=== PATIENT | male | born 1940 | race Caucasian/White ===

== ENCOUNTER 2020-12-24 09:59 | Emergency (ER) | payer OTHER ==
[2020-12-24 10:29] LABS: Absolute Lymphocytes (CBC) 1.4 K/uL (0.7-4.9); Basophils % 0.4 % (0-1.3); Hematocrit 41.4 % (39.6-49.0); Lymphocytes % 24.2 % (15.3-44.8); MPV 7.6 fL (7.6-11.3); RBC Red Blood Cell Count 4.42 M/uL (4.33-5.43)
[2020-12-24 10:35] LABS: Protime INR 1.03
[2020-12-24 10:54] LABS: ALT/SGPT 25 U/L (12-78); AST/SGOT 23 U/L (15-37); Albumin 3.6 g/dL (3.4-5.0); Alkaline Phosphatase 80 U/L (45-117); BUN Blood Urea Nitrogen 24 mg/dL (7-18); Bicarbonate 29 mmol/L (21-32); Bilirubin Direct 0.1 mg/dL (0-0.2); Bilirubin Total 0.5 mg/dL (0.2-1.0); Glucose Level 109 mg/dL (74-106); Magnesium 2.2 mg/dL (1.8-2.4); NT PRO-BNP 387 pg/mL (<450); Potassium 4.5 mmol/L (3.5-5.1); Protein, Total 7.3 g/dL (6.4-8.2); Sodium Level 141 mmol/L (136-145); Troponin (Emerg Dept Use Only) < 0.02 ng/mL (0.0-0.045)
--- NOTE | 2020-12-24 10:57 | EKG ---
Test Date: 2020-12-24 Test Time: 10:10:56 Emergency Dispatcher: FLAVIA MEASUREMENT RESULTS: Intervals: Rate: 45 IL: 186 QRSD: 96 QT: 474 QTc: 410 [place]: P: 78 IL: 186 QRS: 67 T: 74 INTERPRETIVE STATEMENTS: Sinus bradycardia Nonspecific ST abnormality Abnormal ECG No previous ECG available for comparison Electronically Signed On 12-24-20 10:56:42 CDT by Monster Lloyd
--- NOTE | 2020-12-24 13:33 | ER ---
Nurse's Notes [facility] Name: Prem Staples Age: 80 yrs Sex: Male : 1940 Arrival Date: 12/24/2020 Time: 10:01 Bed 2 Private MD: Bairon Real E Diagnosis: Dizziness and giddiness;Bradycardia, unspecified-Chronically in the 40s but today as low as 37 Presentation: 12/24 10:15 Chief complaint: Patient states: Dizziness that began this morning. BP at home was ss 18/58 with a HR of 37. Baseline HR is 42 according to patient. PT reports that he feels better at this time. Coronavirus screen: Client denies travel out of the [place] in the last 14 days. Ebola Screen: Patient denies exposure to infectious person. Patient denies travel to an Ebola-affected area in the 21 days before illness onset. Initial Sepsis Screen: Does the patient meet any 2 criteria? No. Patient's initial sepsis screen is negative. Does the patient have a suspected source of infection? No. Patient's initial sepsis screen is negative. Risk Assessment: Do you want to hurt yourself or someone else? Patient reports no desire to harm self or others. Onset of symptoms was December 24, 2020. 10:15 Method Of Arrival: Ambulatory ss 10:15 Acuity: ILYA 3 ss Historical: - Allergies: 10:16 PENICILLINS; ss - Home Meds: 10:16 levothyroxine oral [Active]; ss - PMHx: 10:16 Hypothyroidism; ss - PSHx: 10:16 Bilateral knee replacement; Shoulder repair; R foot; Appendectomy; Tonsillectomy; ss - Immunization history:: Adult Immunizations up to date, Client reports receiving the 2nd dose of the Covid vaccine. - Social history:: Smoking status: Patient denies any tobacco usage or history of. Screenin:06 Abuse screen: Denies threats or abuse. Denies injuries from another. Nutritional ch5 screening: No deficits noted. Tuberculosis screening: No symptoms or risk factors identified. Fall Risk None identified. Assessment: 10:05 Reassessment: No changes from previously documented assessment. General: Appears in no ch5 apparent distress. comfortable. Pain: Denies pain. 10:05 Cardiovascular: Rhythm is sinus bradycardia. ch5 12:22 Reassessment: Patient appears in no apparent distress at this time. No changes from jd3 previously documented assessment. Patient and/or family updated on plan of care and expected duration. Pain level reassessed. Patient is alert, oriented x 3, equal unlabored respirations, skin warm/dry/pink. Patient denies pain at this time. Vital Signs: 10:15 BP 179 / 80; Pulse 45; Resp 17; Temp 97.9(TE); Pulse Ox 100% on R/A; Pain 0/10; ss 11:06 BP 129 / 62; Pulse 43; Resp 18; Pulse Ox 100% on R/A; Pain 0/10; ch5 12:22 BP 126 / 57; Pulse 42; Resp 14 S; Pulse Ox 100% on R/A; jd3 ED Course: 10:01 Patient arrived in ED. am2 10:02 Bairon Real MD is Private Physician. am2 10:11 Patient has correct armband on for positive identification. tw5 10:11 Initial lab(s) drawn, by me. Inserted saline lock: 20 gauge in right antecubital area, tw5 using aseptic technique. 10:16 Triage completed. ss 10:16 Arm band placed on right wrist. ss 10:17 Brandon Orellana MD is Attending Physician. kdr 10:19 Omer Hector, WILMAR is Primary Nurse. ch5 10:24 Basic Metabolic Panel Sent. ch5 10:25 CBC with Diff Sent. ch5 10:25 LFT's Sent. ch5 10:25 Magnesium Sent. ch5 10:25 NT PRO-BNP Sent. ch5 10:25 PT-INR Sent. ch5 10:25 Troponin (emerg Dept Use Only) Sent. ch5 11:[address] ch5 11:04 XRAY Chest (1 view) In Process Unspecified. EDMS 11:06 No provider procedures requiring assistance completed. ch5 11:15 CT Head Brain wo Cont In Process Unspecified. EDMS 11:18 Patient taken to an exam room. ch5 13:31 Bairon Real MD is Referral Physician. kdr Administered Medications: No medications were administered Outcome: 13:32 Discharge ordered by . kdr 14:03 Patient left the ED. iw Signatures: Dispatcher [employer] EDMS Brandon Orellana MD MD kdr Eunice Ventura, RN Sienna Darby RN RN ss Jacqui Simpson am2 Zeke Allen RN RN jd3 Omer Hector RN RN ch5 Susanne Parra 5 Corrections: (The following items were deleted from the chart) 10:17 10:16 Allergies: No Known Allergies; ss
--- NOTE | 2020-12-24 13:33 | EDPHYS ---
Physician Documentation [facility] Name: Prem Staples Age: 80 yrs Sex: Male : 1940 Arrival Date: 12/24/2020 Time: 10:01 Bed 2 Private MD: Bairon Real E ED Physician Brandon Orellana HPI: 12/25 08:22 This 80 yrs old Male presents to ER via Ambulatory with complaints of kdr Dizziness, lightheaded, pulse rate 37 at home. 08:22 The patient presents with dizziness, generalized weakness, lightheadedness. Onset: The kdr symptoms/episode began/occurred suddenly, just prior to arrival. Context: occurred at home, occurred while the patient was at rest. Modifying factors: The symptoms are alleviated by nothing, the symptoms are aggravated by nothing. Associated signs and symptoms: The patient has no apparent associated signs or symptoms. Severity of symptoms: At their worst the symptoms were mild in the emergency department the symptoms are unchanged. Patient's baseline: Neuro: alert and fully oriented, Motor: no deficits, Ambulation: walks without assistance. The patient has not experienced similar symptoms in the past. The patient has not recently seen a physician. Historical: - Allergies: 12/24 10:16 PENICILLINS; ss - Home Meds: 10:16 levothyroxine oral [Active]; ss - PMHx: 10:16 Hypothyroidism; ss - PSHx: 10:16 Bilateral knee replacement; Shoulder repair; R foot; Appendectomy; Tonsillectomy; ss - Immunization history:: Adult Immunizations up to date, Client reports receiving the 2nd dose of the Covid vaccine. - Social history:: Smoking status: Patient denies any tobacco usage or history of. ROS: 12/25 08:22 Constitutional: Negative for fever, chills, and weight loss, Eyes: Negative for injury, kdr pain, redness, and discharge, Neck: Negative for injury, pain, and swelling, Cardiovascular: Negative for chest pain, palpitations, and edema, Respiratory: Negative for shortness of breath, cough, wheezing, and pleuritic chest pain, Abdomen/GI: Negative for abdominal pain, nausea, vomiting, diarrhea, and constipation, Back: Negative for injury and pain, : Negative for injury, bleeding, discharge, and swelling, MS/Extremity: Negative for injury and deformity, Skin: Negative for injury, rash, and discoloration, Psych: Negative for depression, anxiety, suicide ideation, homicidal ideation, and hallucinations, Allergy/Immunology: Negative for hives, rash, and allergies, Endocrine: Negative for neck swelling, polydipsia, polyuria, polyphagia, and marked weight changes, Hematologic/Lymphatic: Negative for swollen nodes, abnormal bleeding, and unusual bruising. Neuro: Positive for dizziness, Lightheaded. Exam: 08:22 Constitutional: This is a well developed, well nourished patient who is awake, alert, kdr and in no acute distress. Head/Face: Normocephalic, atraumatic. Eyes: Pupils equal round and reactive to light, extra-ocular motions intact. Lids and lashes normal. Conjunctiva and sclera are non-icteric and not injected. Cornea within normal limits. Periorbital areas with no swelling, redness, or edema. Neck: Trachea midline, no thyromegaly or masses palpated, and no cervical lymphadenopathy. Supple, full range of motion without nuchal rigidity, or vertebral point tenderness. No Meningismus. Chest/axilla: Normal chest wall appearance and motion. Nontender with no deformity. No lesions are appreciated. Cardiovascular: Regular rate and rhythm with a normal S1 and S2. No gallops, murmurs, or rubs. Normal PMI, no JVD. No pulse deficits. Respiratory: Lungs have equal breath sounds bilaterally, clear to auscultation and percussion. No rales, rhonchi or wheezes noted. No increased work of breathing, no retractions or nasal flaring. Abdomen/GI: Soft, non-tender, with normal bowel sounds. No distension or tympany. No guarding or rebound. No evidence of tenderness throughout. Back: No spinal tenderness. No costovertebral tenderness. Full range of motion. Skin: Warm, dry with normal turgor. Normal color with no rashes, no lesions, and no evidence of cellulitis. MS/ Extremity: Pulses equal, no cyanosis. Neurovascular intact. Full, normal range of motion. Neuro: Awake and alert, GCS 15, oriented to person, place, time, and situation. Cranial nerves II-XII grossly intact. Motor strength 5/5 in all extremities. Sensory grossly intact. Cerebellar exam normal. Normal gait. Psych: Awake, alert, with orientation to person, place and time. Behavior, mood, and affect are within normal limits. Vital Signs: 12/24 10:15 BP 179 / 80; Pulse 45; Resp 17; Temp 97.9(TE); Pulse Ox 100% on R/A; Pain 0/10; ss 11:06 BP 129 / 62; Pulse 43; Resp 18; Pulse Ox 100% on R/A; Pain 0/10; ch5 12:22 BP 126 / 57; Pulse 42; Resp 14 S; Pulse Ox 100% on R/A; jd3 MDM: 13:32 Patient medically screened. [facility] 12/25 08:25 Data reviewed: vital signs, nurses notes, lab test result(s), EKG, radiologic studies. kdr Counseling: I had a detailed discussion with the patient and/or guardian regarding: the historical points, exam findings, and any diagnostic results supporting the discharge/admit diagnosis, lab results, radiology results, the need for outpatient follow up. 12/24 10:18 Order name: Basic Metabolic Panel; Complete Time: 13:14 kdr 12/24 10:18 Order name: CBC with Diff; Complete Time: 13:14 kdr 12/24 10:18 Order name: LFT's; Complete Time: 13:14 kdr 12/24 10:18 Order name: Magnesium; Complete Time: 13:14 kdr 12/24 10:18 Order name: NT PRO-BNP; Complete Time: 13:14 kdr 12/24 10:18 Order name: PT-INR; Complete Time: 13:14 kdr 12/24 10:18 Order name: Troponin (emerg Dept Use Only); Complete Time: 13:14 kdr 12/24 10:18 Order name: XRAY Chest (1 view) kdr 12/24 10:18 Order name: EKG; Complete Time: 10:18 kdr 12/24 10:18 Order name: Cardiac monitoring; Complete Time: 10:20 kdr 12/24 10:18 Order name: EKG - Nurse/Tech; Complete Time: 10:26 kdr 12/24 10:18 Order name: IV Saline Lock; Complete Time: 10:20 kdr 12/24 10:18 Order name: Labs collected and sent; Complete Time: 10:20 kdr 12/24 11:04 Order name: CT Head Brain wo Cont kdr 12/24 10:18 Order name: O2 Per Protocol; Complete Time: 10:20 kdr 12/24 10:18 Order name: O2 Sat Monitoring; Complete Time: 10:20 kdr Administered Medications: No medications were administered Disposition Summary: 12/24/20 13:32 Discharge Ordered Location: Home kdr Problem: new kdr Symptoms: have improved kdr Condition: Stable kdr Diagnosis - Dizziness and giddiness kdr - Bradycardia, unspecified - Chronically in the 40s but today as low as 37 kdr Followup: kdr - With: Bairon Real MD - When: 2 - 3 days - Reason: If symptoms return, Further diagnostic work-up, Recheck today's complaints, Continuance of care, Re-evaluation by your physician Discharge Instructions: - Discharge Summary Sheet kdr - Bradycardia, Adult kdr - Dizziness, [id number] kdr Forms: - Medication Reconciliation Form kdr - Thank You Letter kdr Signatures: Dispatcher [employer] Brandon Retana MD MD kdr Sienna Hernandez RN RN ss Corrections: (The following items were deleted from the chart) 12/24 10:17 10:16 Allergies: No Known Allergies; ss ss
[2020-12-24 14:07] VITALS: TEMP 97.9; O2SAT 100
[2020-12-24 14:10] VITALS: BP 126/57
--- NOTE | 2020-12-24 15:07 | RAD REPORT ---
EXAM DESCRIPTION: RAD - Chest Single View - 12/24/2020 11:03 am CLINICAL HISTORY: , Lightheaded Chest pain. COMPARISON: No comparisons FINDINGS: Portable technique limits examination quality. 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 The heart is upper limit of normal in size. No displac ed fractures.Hardware is noted left clavicle. IMPRESSION: No acute intrathoracic process suspected.
--- NOTE | 2020-12-24 17:10 | RAD REPORT ---
EXAM DESCRIPTION: CT - Head Brain Wo Cont - 12/24/2020 11:15 am CLINICAL HISTORY: DIZZINESS Headache, drowsiness, dizziness COMPARISON: Head angio dated 09/20/2020 TECHNIQUE: All CT scans are performed using dose optimization technique as appropriate and may inclu de automated exposure control or mA/KV adjustment according to patient size. FINDINGS: No intracranial hemorrhage, hydrocephalus or extra-axial fluid collection.No areas of brai n edema or evidence of midline shift. The paranasal sinuses and mastoids are clear. The calvarium is intact. IMPRESSION: No acute intracranial abnormality.
== END 2020-12-24 14:03 | disposition home or self-care (01) ==
LOC: ER 09:59
DX: R00.1 Bradycardia, unspecified (principal); E03.9 Hypothyroidism, unspecified; Z88.0 Allergy status to penicillin
CPT/HCPCS: 36415; 70450; 71045; 80048; 80076; 83735; 83880; 84484; 85025; 85610; 93005; 99284

== ENCOUNTER 2022-07-08 22:04 | Emergency (ER) | payer OTHER ==
--- OUTSIDE RECORDS SUMMARY | 2022-07-08 22:08 | XMS REPORT | Continuity of Care Document ---
:1940 Author Organization [facility] t Address [address] [place] [address] [address] [place] [address] Care Team Providers Name Role Phone PCP, PATIENT DOES NOT HAVE A Primary Care Physician Unavaila ELIJAH Damon Attending Clinician Unavailable ZANDRA YOUNG Attending Clinician Unavailable GURMEET CORDERO Attending Clinician Unavailable MANISH FARFAN Attending Clinician Unavailable TATIANA FORD Attending Clinician Unavailable MANISH FARFAN Admitting Clinician Unavailable Payers Payer Name Policy Type Policy Number Effective Date Expiration Date S mahin [facility] MEDICARE [id number] 2020 00:00:00 [place] [id number] 2019 HEALTHCARE/AARP 00:00:00 AARP MEDICARE [id number] 2017 COMPLETE 00:00:00 Problems This patient has no known problems. Allergies, Adverse Reactions, Alerts Allergy Allergy Status Severity Reaction(s) Onset Inactive Treating Comm ents Source Name Type Date Date Clinician PENICILL Drug Active Rash 2006- [facility] INS Class 5-11 ity of 00:00: [address] Medications This patient has no known medications. Procedures This patient has no known procedures. Encounters Start End Encounter Admission Attending Care Care Encounter Source Date/Time Date/Time Type Type Clinicians Facility Department ID 2020-05-03 2020-05-03 Outpatient iD RAMOS [facility] [id number] Univers 16:50:00 16:50:00 ELIJAH [facility] 2020-04-30 2020-04-30 Outpatient Di RAMOS [facility] [id number] Univers 10:30:00 10:30:00 [facility] 2020-04-16 2020-04-16 Outpatient R DONA [facility] [id number] Univers 13:15:00 13:15:00 ZANDRA Winkler o pankaj [facility] 2020-04-08 2020-04-08 Outpatient R CONSUELO [facility] [id number] Univers 10:40:00 10:40:00 GURMEET danny [facility] 2019-12-07 2019-12-07 Outpatient R ADOLPH [facility] [id number] Univers 09:45:00 09:45:00 MANISH [facility] 2019-06-19 2019-06-19 Outpatient Di FORD [facility] [id number] Univers 15:15:00 15:15:00 TATIANA [facility] 2019-06-19 2019-06-19 [facility] [id number] Univers 13:45:00 13:45:00 MANISH danny [facility] 2019-03-20 2019-03-20 Outpatient O ADOLPH [facility] [id number] Univers 15:35:55 23:59:00 MANISH [facility] 2019-02-13 2019-02-14 [facility] [id number] Univers 11:35:00 16:00:00 MANISH danny [facility] 2019-02-06 2019-02-06 [facility] [id number] Univers 13:27:15 23:59:00 [facility] Results This patient has no known results.
--- NOTE | 2022-07-08 22:48 | ER ---
Nurse's Notes [facility] Name: Prem Staples Age: 82 yrs Sex: Male : 1940 Arrival Date: 07/08/2022 Time: 22:04 Bed IW1 Private MD: Diagnosis: Food in esophagus;Vomiting Presentation: 07/08 22:25 Chief complaint: Patient states: eating orange at 730 pm reports unable to swallow kl reports difficulty handling secretions previous episodes. Coronavirus screen: Vaccine status: Patient reports receiving the 2nd dose of the covid vaccine. Ebola Screen: Patient negative for fever greater than or equal to 101.5 degrees Fahrenheit, and additional compatible Ebola Virus Disease symptoms. Initial Sepsis Screen: Does the patient meet any 2 criteria? No. Patient's initial sepsis screen is negative. Does the patient have a suspected source of infection? No. Patient's initial sepsis screen is negative. Risk Assessment: Do you want to hurt yourself or someone else? Patient reports no desire to harm self or others. 22:25 Method Of Arrival: Ambulatory kl 22:33 Note unable to tolerate PO water. kl 22:34 Acuity: ILYA 3 kl 23:00 Note pt not in lobby. kl 07/09 02:15 Note called patient at home no answer. Triage Assessment: 07/08 22:30 General: Appears in no apparent distress. comfortable, Behavior is calm, cooperative. kl Pain: Denies pain. Historical: - Allergies: 22:29 PENICILLINS; kl - Home Meds: 22:29 levothyroxine oral [Active]; kl - PMHx: 22:29 Hypothyroidism; - PSHx: 22:29 Appendectomy; bilateral knee replacement; R foot; Shoulder repair; Tonsillectomy; kl - Immunization history:: Adult Immunizations up to date. - Social history:: Smoking status: Patient denies any tobacco usage or history of. Screenin:00 [facility] ED Fall Risk Assessment (Adult) History of falling in the last 3 months, kl including since admission No falls in past 3 months (0 pts) Confusion or Disorientation No (0 pts) Intoxicated or Sedated No (0 pts) Impaired Gait No (0 pts) Mobility Assist Device Used No (0 pt) Altered Elimination No (0 pt). Abuse screen: Denies threats or abuse. Nutritional screening: No deficits noted. Tuberculosis screening: No symptoms or risk factors identified. Assessment: 22:59 General: Appears distressed, comfortable, Behavior is calm, cooperative. Pain: Denies kl pain. Neuro: No deficits noted. Cardiovascular: No deficits noted. Rhythm is sinus bradycardia. Respiratory: No deficits noted. Airway is patent Trachea midline Respiratory effort is even, unlabored, Respiratory pattern is regular. GI: Reports intolerance of fluids, intolerance of food. : No deficits noted. No signs and/or symptoms were reported regarding the genitourinary system. EENT: Reports difficulty swallowing since 1930. Vital Signs: 22:25 BP 181 / 89; Pulse 98; Resp 18; Temp 98.1; Pulse Ox 100% on R/A; Weight 72.57 kg (R); kl Height 5 ft. 9 in. ; Pain 0/10; 22:25 Body Mass Index 23.63 (72.57 kg, 175.26 cm) 22:25 Pain Scale: Adult ED Course: 22:09 Patient arrived in ED. mary 22:27 Timi Echevarria MD is Attending Physician. onelia 22:29 Triage completed. kl 22:46 Jose Ramon Singh MD is Hospitalizing Provider. onelia 22:49 Adan Lundberg MD is Hospitalizing Provider. la1 23:00 Patient has correct armband on for positive identification. kl 23:00 No provider procedures requiring assistance completed. 07/09 06:13 Bairon Ludwig MD is Referral Physician. onelia Administered Medications: No medications were administered Outcome: 07/08 22:47 Decision to Hospitalize by Provider. [facility] 07/09 06:14 Discharge ordered by . onelia 06:19 Patient left the ED. lg3 Signatures: Vicenta Soto, RN RN Timi Todd MD MD cha Attema, Lee, LPN CMA-C LPN CMA-Cla1 Sheila Ellis, RN RN lg3 Helga Hess Corrections: (The following items were deleted from the chart) 07/08 22:34 22:25 Acuity: ILYA 4 kl 34 22:31 Note provider evaluating patient drinking water tolerating without difficulty [facility]
--- NOTE | 2022-07-08 22:48 | EDPHYS ---
Physician Documentation [facility] Name: Prem Staples Age: 82 yrs Sex: Male : 1940 Arrival Date: 07/08/2022 Time: 22:04 Bed IW1 Private MD: ED Physician Timi Echevarria HPI: 07/08 22:41 This 82 yrs old Male presents to ER via Ambulatory with complaints of Foreign onelia Body In Throat. 22:41 The patient presents to the emergency department with nausea, vomiting, that is onelia continuous. Onset: The symptoms/episode began/occurred just prior to arrival. Possible causes: unknown. The symptoms are aggravated by food , The symptoms are alleviated by NO FOOD. Associated signs and symptoms: The patient has no apparent associated signs or symptoms. Severity of symptoms: At their worst the symptoms were mild in the emergency department the symptoms are unchanged. The patient has not experienced similar symptoms in the past. Historical: - Allergies: 22:29 PENICILLINS; kl - Home Meds: 22:29 levothyroxine oral [Active]; kl - PMHx: 22:29 Hypothyroidism; kl - PSHx: 22:29 Appendectomy; bilateral knee replacement; R foot; Shoulder repair; Tonsillectomy; kl - Immunization history:: Adult Immunizations up to date. - Social history:: Smoking status: Patient denies any tobacco usage or history of. ROS: 22:43 Constitutional: Negative for fever, chills, and weight loss, Eyes: Negative for injury, onelia pain, redness, and discharge, Neck: Negative for injury, pain, and swelling, Cardiovascular: Negative for chest pain, palpitations, and edema, Respiratory: Negative for shortness of breath, cough, wheezing, and pleuritic chest pain, Back: Negative for injury and pain, : Negative for injury, bleeding, discharge, and swelling, MS/Extremity: Negative for injury and deformity, Skin: Negative for injury, rash, and discoloration, Neuro: Negative for headache, weakness, numbness, tingling, and seizure, Psych: Negative for depression, anxiety, suicide ideation, homicidal ideation, and hallucinations, Allergy/Immunology: Negative for hives, rash, and allergies, Endocrine: Negative for neck swelling, polydipsia, polyuria, polyphagia, and marked weight changes, Hematologic/Lymphatic: Negative for swollen nodes, abnormal bleeding, and unusual bruising. 22:43 ENT: Positive for difficulty swallowing, Negative for injury or acute deformity. Exam: 22:43 Constitutional: This is a well developed, well nourished patient who is awake, alert, onelia and in no acute distress. Head/Face: Normocephalic, atraumatic. Eyes: Pupils equal round and reactive to light, extra-ocular motions intact. Lids and lashes normal. Conjunctiva and sclera are non-icteric and not injected. Cornea within normal limits. Periorbital areas with no swelling, redness, or edema. ENT: Nares patent. No nasal discharge, no septal abnormalities noted. Tympanic membranes are normal and external auditory canals are clear. Oropharynx with no redness, swelling, or masses, exudates, or evidence of obstruction, uvula midline. Mucous membranes moist. Neck: Trachea midline, no thyromegaly or masses palpated, and no cervical lymphadenopathy. Supple, full range of motion without nuchal rigidity, or vertebral point tenderness. No Meningismus. Chest/axilla: Normal chest wall appearance and motion. Nontender with no deformity. No lesions are appreciated. Cardiovascular: Regular rate and rhythm with a normal S1 and S2. No gallops, murmurs, or rubs. Normal PMI, no JVD. No pulse deficits. Respiratory: Lungs have equal breath sounds bilaterally, clear to auscultation and percussion. No rales, rhonchi or wheezes noted. No increased work of breathing, no retractions or nasal flaring. Back: No spinal tenderness. No costovertebral tenderness. Full range of motion. Male : Normal genitalia with no discharge or lesions. Skin: Warm, dry with normal turgor. Normal color with no rashes, no lesions, and no evidence of cellulitis. MS/ Extremity: Pulses equal, no cyanosis. Neurovascular intact. Full, normal range of motion. Neuro: Awake and alert, GCS 15, oriented to person, place, time, and situation. Cranial nerves II-XII grossly intact. Motor strength 5/5 in all extremities. Sensory grossly intact. Cerebellar exam normal. Normal gait. Psych: Awake, alert, with orientation to person, place and time. Behavior, mood, and affect are within normal limits. 22:43 Abdomen/GI: Inspection: abdomen appears normal, Bowel sounds: normal, Palpation: abdomen is soft and non-tender, Liver: no appreciated palpable abnormalities, Hernia: not appreciated. Vital Signs: 22:25 BP 181 / 89; Pulse 98; Resp 18; Temp 98.1; Pulse Ox 100% on R/A; Weight 72.57 kg (R); kl Height 5 ft. 9 in. ; Pain 0/10; 22:25 Body Mass Index 23.63 (72.57 kg, 175.26 cm) kl 22:25 Pain Scale: Adult kl MDM: 22:27 Patient medically screened. onelia 22:44 Differential diagnosis: Nonspecific abd pain, pancreatitis, viral gastroenteritis, onelia gastroenteritis. Data reviewed: vital signs, nurses notes, lab test result(s), EKG, radiologic studies, plain films. Consideration of Admission/Observation Patient was admitted/placed on observation. Escalation of care including admission/observation considered. Management of patient was discussed with the following: Mobile Application Engineer: DR WILLIAM , ADMIT , NPO, EGD IN AM. Test considered but Not performed: CT: NO CT CHEST. Care significantly affected by the following chronic conditions: STRICTURE, HYPOTHYROID. Counseling: I had a detailed discussion with the patient and/or guardian regarding: the historical points, exam findings, and any diagnostic results supporting the discharge/admit diagnosis, radiology results, the need for further work-up and treatment in the hospital. 07/08 22:41 Order name: EKG; Complete Time: 22:42 [facility] 07/08 22:41 Order name: Cardiac monitoring [facility] 07/08 22:41 Order name: EKG - Nurse/Tech [facility] 07/08 22:41 Order name: IV Saline Lock [facility] 07/08 22:41 Order name: Labs collected and sent [facility] 07/08 22:41 Order name: O2 Per Protocol [facility] 07/08 22:41 Order name: O2 Sat Monitoring onelia Administered Medications: No medications were administered Disposition Summary: 07/09/22 06:14 Discharge Ordered Location: Home(07/09/22 06:14) onelia Problem: new(07/09/22 06:14) onelia Symptoms: have improved(07/09/22 06:14) onelia Condition: Stable(07/09/22 06:14) onelia Diagnosis - Food in esophagus(07/09/22 06:14) onelia - Vomiting(07/09/22 06:14) onelia Followup: onelia - With: Private Physician - When: Upon discharge from the Emergency Department - Reason: Recheck today's complaints, Continuance of care, Re-evaluation by your physician Followup: onelia - With: Bairon Ludwig MD - When: Upon discharge from the Emergency Department - Reason: Recheck today's complaints, Re-evaluation by your physician Discharge Instructions: - Discharge Summary Sheet onelia - Esophageal Stricture onelia Forms: - Medication Reconciliation Form onelia - Thank You Letter onelia - Antibiotic Education onelia - Prescription Opioid Use onelia Signatures: Dispatcher [employer] EDMS Vicenta Soto RN RN kl Anderson, Corey, MD MD cha Attema, Lee, PRE FABRICATOR-C PRE FABRICATOR-Cla1 Corrections: (The following items were deleted from the chart) 22:49 22:47 Jose Ramon Singh cha [facility] 23:52 22:42 Chest Single View+RAD.RAD.BRZ ordered. EDME EDME 07/09 06:13 07/08 22:47 Observation [facility] 07/09 06:13 07/08 22:47 Telemetry/MedSurg (observation) [facility] 07/09 06:13 07/08 22:47 Stable [facility] 07/09 06:13 07/08 22:47 new [facility] 07/09 06:07/08 22:47 have improved [facility] 07/09 06:13 07/08 22:47 Standard [facility] 07/09 06:13 07/08 22:47 [facility] 07/09 06:07/08 22:47 Foreign body in esophagus [facility] 07/09 06:13 07/08 22:47 Food in esophagus [facility] 07/09 06:13 07/08 22:47 Vomiting [facility] 07/09 06:07/08 22:49 Adan Lundberg [facility]
[2022-07-09 06:24] VITALS: BP 181/89; TEMP 98.1; O2SAT 100
== END 2022-07-09 06:19 | disposition home or self-care (01) ==
LOC: ER 22:04
DX: T18.128A Food in esophagus causing other injury, initial encounter (principal); R11.10 Vomiting, unspecified; E03.9 Hypothyroidism, unspecified; Z88.0 Allergy status to penicillin
CPT/HCPCS: 99281

== ENCOUNTER 2023-02-11 09:33 | Emergency (ER) | payer OTHER ==
--- OUTSIDE RECORDS SUMMARY | 2023-02-11 09:36 | XMS REPORT | Continuity of Care Document ---
:1940 Author Organization [facility] t Address [address] [place] [address] [address] [place] [address] Care Team Providers Name Role Phone PCP, PATIENT DOES NOT HAVE A Primary Care Physician Unavaila ELIJAH Damon Attending Clinician Unavailable ZANDRA YOUNG Attending Clinician Unavailable GURMEET CORDERO Attending Clinician Unavailable MANISH FARFAN Attending Clinician Unavailable TATIANA FORD Attending Clinician Unavailable MANISH FARFAN Admitting Clinician Unavailable Payers Payer Name Policy Type Policy Number Effective Date Expiration Date S mahin [facility] MEDICARE [id number] 2020 00:00:00 [place] [id number] 2019 HEALTHCARE/AARP 00:00:00 AARP MEDICARE [id number] 2017 COMPLETE 00:00:00 Problems This patient has no known problems. Allergies, Adverse Reactions, Alerts Allergy Allergy Status Severity Reaction(s) Onset Inactive Treating Comm ents Source Name Type Date Date Clinician PENICILL Drug Active Rash 2006- Univers INS Class 5-11 ity of 00:00: [address] Medications This patient has no known medications. Procedures This patient has no known procedures. Encounters Start End Encounter Admission Attending Care Care Encounter Source Date/Time Date/Time Type Type Clinicians Facility Department ID 2020-05-03 2020-05-03 Outpatient Di RAMOS [facility] [id number] [facility] 16:50:00 16:50:00 ELIJAH [facility] 2020-04-30 2020-04-30 Outpatient Di RAMOS [facility] [id number] Univers 10:30:00 10:30:[address] [facility] 2020-04-16 2020-04-16 Outpatient R DONA [facility] [id number] Univers 13:15:00 13:15:00 ZANDRA Winkler o pankaj [facility] 2020-04-08 2020-04-08 Outpatient R CONSUELO [facility] [id number] Univers 10:40:00 10:40:00 GURMEET danny [facility] 2019-12-07 2019-12-07 Outpatient R ADOLPH [facility] [id number] Univers 09:45:00 09:45:00 MANISH [facility] 2019-06-19 2019-06-19 Outpatient Di FORD [facility] [id number] Univers 15:15:00 15:15:00 TATIANA [facility] 2019-06-19 2019-06-19 [facility] [id number] Univers 13:45:00 13:45:00 MANISH danny [facility] 2019-03-20 2019-03-20 Outpatient O ADOLPH [facility] [id number] Univers 15:35:55 23:59:00 MANISH [facility] 2019-02-13 2019-02-14 [facility] [id number] Univers 11:35:00 16:00:00 MANISH danny [facility] 2019-02-06 2019-02-06 [facility] [id number] Univers 13:27:15 23:59:00 [facility] Results This patient has no known results.
--- NOTE | 2023-02-11 10:43 | RAD REPORT ---
EXAM DESCRIPTION: RADChest Single View02/11/2023 10:25 am CLINICAL HISTORY: dizziness;Palpitations COMPARISON: Chest Single View dated 12/24/2020 TECHNIQUE: Portable AP view of the chest. FINDINGS: The lungs are clear. Mild hyperinflation. No pneumothorax or effusion. The cardiomediastin al contours are unremarkable. IMPRESSION: No acute cardiopulmonary process.
[2023-02-11 10:46] LABS: Potassium 4.1 mEq/L (3.5-5.1); Troponin High Sensitivity 7.6 pg/mL (<58.9)
[2023-02-11 11:02] LABS: Protime INR 1.06
[2023-02-11 11:14] LABS: Hematocrit 37.2 % (39.6-49.0); MCV 93.3 fL (80-100); RBC Red Blood Cell Count 3.99 M/uL (4.33-5.43)
[2023-02-11 11:15] LABS: Lymphocytes % 31.3 % (15.3-44.8); MPV 8.1 fL (7.6-11.3); Platelets 167 thou/uL (152-406)
--- NOTE | 2023-02-11 12:07 | ER ---
Nurse's Notes [facility] Name: Prem Staples Age: 83 yrs Sex: Male : 1940 Arrival Date: 02/11/2023 Time: 09:33 Bed 2 Private MD: Diagnosis: Bradycardia, unspecified Presentation: 02/11 09:37 Chief complaint: Patient states: Sent in by child adolescent care for possible A fib/ low HR. + ll1 dizziness. Coronavirus screen: Client denies travel out of the [place] in the last 14 days. At this time, the client does not indicate any symptoms associated with coronavirus-19. Ebola Screen: Patient denies travel to an Ebola-affected area in the 21 days before illness onset. Initial Sepsis Screen: Does the patient meet any 2 criteria? No. Patient's initial sepsis screen is negative. Does the patient have a suspected source of infection? No. Patient's initial sepsis screen is negative. Risk Assessment: Do you want to hurt yourself or someone else? Patient reports no desire to harm self or others. Onset of symptoms was February 11, 2023. 09:37 Method Of Arrival: Ambulatory ll1 09:37 Acuity: ILYA 2 ll1 Triage Assessment: 09:39 General: Appears in no apparent distress. Behavior is calm, cooperative, appropriate ll1 for age, Reports fatigue for. Pain: Denies pain. Neuro: Reports dizziness, weakness. Cardiovascular: Reports. Historical: - Allergies: 09:38 PENICILLINS; ll1 - PMHx: 09:38 Hypothyroidism; ll1 - PSHx: 09:38 Appendectomy; bilateral knee replacement; R foot; Shoulder repair; Tonsillectomy; ll1 - Immunization history:: Adult Immunizations up to date. - Social history:: Smoking status: Patient denies any tobacco usage or history of. - Family history:: not pertinent. - Hospitalizations: : No recent hospitalization is reported. Screenin:30 [facility] ED Fall Risk Assessment (Adult) Score/Fall Risk Level 0 - 2 = Low Risk. Abuse eh3 screen: Denies threats or abuse. Denies injuries from another. Nutritional screening: No deficits noted. Tuberculosis screening: No symptoms or risk factors identified. Assessment: 10:16 Reassessment: No changes from previously documented assessment. Patient and/or family ll1 updated on plan of care and expected duration. Pain level reassessed. 10:30 General: Appears in no apparent distress. comfortable, Behavior is calm, cooperative, eh3 appropriate for age. Pain: Denies pain. Neuro: Level of Consciousness is awake, alert, obeys commands, Oriented to person, place, time, situation. Cardiovascular: Capillary refill < 3 seconds Patient's skin is warm and dry. Respiratory: Airway is patent Respiratory effort is even, unlabored, Respiratory pattern is regular, symmetrical. 11:30 Reassessment: Patient appears in no apparent distress at this time. Patient and/or eh3 family updated on plan of care and expected duration. Pain level reassessed. Patient is alert, oriented x 3, equal unlabored respirations, skin warm/dry/pink. Vital Signs: 09:37 BP 200 / 74; Pulse 53; Resp 16; Temp 97.5; Pulse Ox 100% ; Weight 72.57 kg; Height 5 ll1 ft. 9 in. ; Pain 0/10; 10:38 BP 175 / 73; Pulse 40; Resp 18; Pulse Ox 100% on R/A; ph 11:15 BP 168 / 65; Pulse 56; Resp 16; Pulse Ox 100% on R/A; eh3 12:00 BP 135 / 52; Pulse 47; Resp 12; Pulse Ox 99% on R/A; eh3 09:37 Body Mass Index 23.63 (72.57 kg, 175.26 cm) ll1 09:37 Pain Scale: Adult ll1 ED Course: 09:34 Patient arrived in ED. im 09:35 Heber Singh MD is Attending Physician. rn 09:37 Arm band placed on. ll1 09:38 Triage completed. ll1 09:51 EKG completed in triage. Results shown to MD. ll1 10:27 XRAY Chest (1 view) In Process Unspecified. EDMS 10:28 Patient placed in an exam room, on a stretcher. ll1 10:29 Antonia Rubi RN is Primary Nurse. eh3 10:30 Patient has correct armband on for positive identification. Bed in low position. Call eh3 light in reach. Side rails up X2. Provided Education on: use of call fuller. Client placed on continuous cardiac and pulse oximetry monitoring. NIBP monitoring applied. 10:37 Jacquie Rubi, WILMAR is Primary Nurse. ph 12:07 Shai Ruiz MD is Referral Physician. rn 12:28 No provider procedures requiring assistance completed. IV discontinued, intact, 3 bleeding controlled, No redness/swelling at site. Pressure dressing applied. Administered Medications: No medications were administered Medication: 10:39 VIS not applicable for this client. ph Outcome: 12:07 Discharge ordered by . rn 12:28 Discharged to home ambulatory, [facility] 12:28 Condition: stable 12:28 Discharge instructions given to patient, Instructed on discharge instructions, follow up and referral plans. Demonstrated understanding of instructions, follow-up care, 12:29 Patient left the ED. 3 Signatures: Dispatcher [employer] EDMS Heber Singh MD MD rn Jacquie Rubi RN RN River Soto RN RN 1 Antonia Rubi RN RN 3 Sahara Jorge Corrections: (The following items were deleted from the chart) 09:51 09:37 72.57 kg; Height 5 ft. 9 in.; BMI: 23.6; Pain 0/10, Adult; ll1 ll1
--- NOTE | 2023-02-11 12:07 | EDPHYS ---
Physician Documentation [facility] Name: Prem Staples Age: 83 yrs Sex: Male : 1940 Arrival Date: 02/11/2023 Time: 09:33 Bed 2 Private MD: ED Physician Heber Singh HPI: 02/11 10:11 This 83 yrs old Male presents to ER via Ambulatory with complaints of Bradycardia. rn 10:11 The patient presents with dizziness, lightheadedness. Onset: The symptoms/episode rn began/occurred at an unknown time. Context: occurred at an office, occurred while the patient was at rest. Modifying factors: The symptoms are alleviated by Exertion, the symptoms are aggravated by nothing. Associated signs and symptoms: Pertinent negatives: abdominal pain, chest pain, seizure, shortness of breath, syncope. Severity of symptoms: At their worst the symptoms were mild in the emergency department the symptoms have improved. The patient has experienced similar episodes in the past. The patient has been recently seen by a physician:. Patient sent from clinic for bradycardia. Patient reports intermittent dizziness that has been happening on and off for a while now. Seen here 2 years ago for similar presentation. Reports improved with cardio activity such as bicycle riding. Reports daily heart rate in the low 40s and intermittent dizziness. No syncope. No chest pain. No shortness of breath. No medication changes. Not on anything for hypertension. Compliant with his thyroid medication. Got dizzy in clinic and sent here for further evaluation. Has been evaluated by Dr. Ruiz and no pacemaker recommended. Currently feels at baseline without any complaints.. Historical: - Allergies: 09:38 PENICILLINS; ll1 - PMHx: 09:38 Hypothyroidism; ll1 - PSHx: 09:38 Appendectomy; bilateral knee replacement; R foot; Shoulder repair; Tonsillectomy; ll1 - Immunization history:: Adult Immunizations up to date. - Social history:: Smoking status: Patient denies any tobacco usage or history of. - Family history:: not pertinent. - Hospitalizations: : No recent hospitalization is reported. ROS: 10:11 Constitutional: Negative for fever, chills, and weight loss, Cardiovascular: Negative rn for chest pain, and edema, Respiratory: Negative for shortness of breath, cough, wheezing, and pleuritic chest pain Abdomen/GI: Negative for abdominal pain, nausea, vomiting, diarrhea, and constipation, MS/Extremity: Negative for injury and deformity, Skin: Negative for injury, rash, and discoloration, Neuro: Negative for headache, weakness, numbness, tingling, and seizure, Exam: 10:11 Constitutional: This is a well developed, well nourished patient who is awake, alert, rn and in no acute distress. Patient ambulatory and jovial. Head/Face: Normocephalic, atraumatic. Cardiovascular: Bradycardic, regular. No pulse deficits. Respiratory: No increased work of breathing, no retractions or nasal flaring. Abdomen/GI: Soft, non-tender Neuro: Awake and alert, GCS 15, oriented to person, place, time, and situation. Cranial nerves II-XII grossly intact. Motor strength 5/5 in all extremities. Sensory grossly intact. Cerebellar exam normal. Normal gait. 10:36 ECG was reviewed by the Attending Physician. rn Vital Signs: 09:37 BP 200 / 74; Pulse 53; Resp 16; Temp 97.5; Pulse Ox 100% ; Weight 72.57 kg; Height 5 ll1 ft. 9 in. ; Pain 0/10; 10:38 BP 175 / 73; Pulse 40; Resp 18; Pulse Ox 100% on R/A; ph 11:15 BP 168 / 65; Pulse 56; Resp 16; Pulse Ox 100% on R/A; eh3 12:00 BP 135 / 52; Pulse 47; Resp 12; Pulse Ox 99% on R/A; eh3 09:37 Body Mass Index 23.63 (72.57 kg, 175.26 cm) ll1 09:37 Pain Scale: Adult ll1 MDM: 09:35 Patient medically screened. rn 12:06 Differential diagnosis: cardiac arrhythmia, generalized weakness, idiopathic dizziness. rn Data reviewed: vital signs, nurses notes, lab test result(s), EKG, radiologic studies, and as a result, I will discharge patient. Management of patient was discussed with the following: Distance Learning Unit Leader: Dr. Ruiz, states okay to DC home if labs unremarkable, read EKG is sinus bradycardia, wants patient to see him in the clinic.. Independent interpretation of the following test(s) in the Emergency Department EKG: See my EKG interpretation above X-Ray: My interpretation is Chest x-ray images negative for pneumothorax or pneumonia per my interpretation. Counseling: I had a detailed discussion with the patient and/or guardian regarding the historical points, exam findings, and any diagnostic results supporting the discharge/admit diagnosis, lab results, radiology results, the need for outpatient follow up, to return to the emergency department if symptoms worsen or persist or if there are any questions or concerns that arise at home. Special discussion: I discussed with the patient/guardian in detail that at this point there is no indication for admission to the hospital. It is understood, however, that if the symptoms persist or worsen the patient needs to return immediately for re-evaluation. Based on the history and exam findings, there is no indication for further emergent testing or inpatient evaluation. I discussed with the patient/guardian the need to see the rope making machine operator for further evaluation of the symptoms. 02/11 09:46 Order name: Basic Metabolic Panel; Complete Time: : rn 02/11 09:46 Order name: CBC with Diff; Complete Time: : 02/11 09:46 Order name: NT PRO-BNP; Complete Time: : rn 02/11 09:46 Order name: PT-INR; Complete Time: : rn 02/11 09:46 Order name: Troponin HS; Complete Time: : rn 02/11 09:46 Order name: XRAY Chest (1 view); Complete Time: 10:44 rn 02/11 09:46 Order name: EKG; Complete Time: 09:47 rn 02/11 09:46 Order name: Cardiac monitoring; Complete Time: 10: rn 02/11 09:46 Order name: EKG - Nurse/Tech; Complete Time: 09:50 rn 02/11 09:46 Order name: IV Saline Lock; Complete Time: 10:16 rn 02/11 09:46 Order name: Labs collected and sent; Complete Time: 10:16 rn 02/11 09:46 Order name: O2 Per Protocol; Complete Time: : rn 02/11 09:46 Order name: O2 Sat Monitoring; Complete Time: : rn 02/11 10:35 Order name: Labs - recollect needed: recollect all labs please; Complete Time: 10:37 em1 EC:36 Rate is 44 beats/min. Rhythm is regular. QRS [place] is Normal. [place] interval is normal. QRS rn interval is normal. QT interval is normal. No Q waves. T waves are Normal. No ST changes noted. Clinical impression: Sinus bradycardia. Interpreted by me. Reviewed by me. Administered Medications: No medications were administered Disposition Summary: 02/11/23 12:07 Discharge Ordered Notes: Location: Home rn Problem: an ongoing problem rn Symptoms: have improved rn Condition: Stable rn Diagnosis - Bradycardia, unspecified rn Followup: rn - With: Shai Ruiz MD - When: As needed - Reason: Recheck today's complaints, Re-evaluation by your physician Discharge Instructions: - Discharge Summary Sheet rn - Bradycardia, Adult rn Forms: - Medication Reconciliation Form rn - Thank You Letter rn - Antibiotic rn l and d - Prescription Opioid Use rn - Patient Portal Instructions rn - Leadership Thank You Letter rn Signatures: Dispatcher [employer] EDMS Heber Singh MD MD rn Semaj, Benito em1 River Soto, RN RN ll1 Antonia Rubi, RN RN eh3
[2023-02-11 12:34] VITALS: TEMP 97.5
[2023-02-11 12:39] VITALS: BP 135/52; O2SAT 99
--- NOTE | 2023-02-11 15:11 | EKG ---
Test Date: 2023-02-11 Test Time: 09:46:57 Cytotechnologist/Histotechnologist: LML MEASUREMENT RESULTS: Intervals: Rate: 44 WA: 186 QRSD: 96 QT: 498 QTc: 425 [place]: P: 100 WA: 186 QRS: 67 T: 75 INTERPRETIVE STATEMENTS: Marked sinus bradycardia Nonspecific ST and T wave abnormality Abnormal ECG Compared to ECG 12/24/2020 10:10:56 No significant changes Electronically Signed On 02-11-23 15:10:03 BIOPSYCHOLOGIST by Shai Ruiz
== END 2023-02-11 12:29 | disposition home or self-care (01) ==
LOC: ER 09:33
DX: R00.1 Bradycardia, unspecified (principal); E03.9 Hypothyroidism, unspecified; Z88.0 Allergy status to penicillin
CPT/HCPCS: 36415; 71045; 80048; 83880; 84484; 85025; 85610; 93005; 99284